=== PATIENT | female | born 1955 | race Caucasian/White ===

== ENCOUNTER 2023-06-26 18:39 | Inpatient (IN) ==
[2023-06-26] MEDS ORDERED: 0.9 % SODIUM CHLORIDE 1,000 ML IV ONE ×3 (18:54→21:42)
[2023-06-26] MEDS ORDERED: INSULIN REGULAR, HUMAN 1 UNIT/0.01 ML UNIT IV ONE ×2 (18:54→23:59)
[2023-06-26 19:31] LABS: Basophils # (Auto) 0.05 K/mcL (0.00-0.30); Basophils % (Auto) 0.3 % (0.0-2.0); Eosinophils # (Auto) 0.05 K/mcL (0.00-0.70); Eosinophils % (Auto) 0.3 % (0.0-7.0); Hematocrit 47.1 % (34.1-44.9); Hemoglobin 15.7 g/dL (11.2-15.7); Lymphocytes # (Auto) 0.78 K/mcL (1.50-4.80); Mean Cell Volume 86.6 fL (80.0-100.0); Mean Corpuscular HGB Conc 33.3 g/dL (31.0-36.0); Mean Platelet Volume 11.5 fL (8.8-12.5); Monocytes # (Auto) 0.76 K/mcL (0.10-0.90); Monocytes % (Auto) 4.9 % (1.0-12.0); Neutrophils % (Auto) 88.9 % (38.0-78.0); Platelet Count 274 K/mcL (140-440); RBC 5.44 M/mcL (3.59-5.38); WBC 15.5 K/mcL (4.5-11.0)
[2023-06-26 19:59] LABS: ALT/SGPT 6 U/L (<40); AST/SGOT 9 U/L (<32); Albumin 3.8 gm/dL (3.2-5.2); Albumin/Globulin Ratio 1.3 (1.0-2.3); Alkaline Phosphatase 84 U/L (39-117); Bilirubin,Total 0.5 mg/dL (0.1-1.0); Blood Urea Nitrogen 18 mg/dL (8-23); Calcium 9.2 mg/dL (8.6-10.4); Carbon Dioxide 17 mmol/L (22-30); Chloride 87 mmol/L (96-108); Glomerular Filtration Rate 39; Glucose 854 mg/dL (70-105)
[2023-06-26] MEDS ORDERED: AZITHROMYCIN 500 MG in DEXTROSE 5% IN WATER 250 ML IV ONE (20:21)
[2023-06-26] MEDS: INSULIN REGULAR, HUMAN 50 UNIT in 0.9 % SODIUM CHLORIDE 99.5 ML IV SCH (20:43)
[2023-06-26 21:53] LABS: Beta Hydroxybutyrate 1.73 mmol/L (<0.27)
[2023-06-26] MEDS ORDERED: DOCUSATE SODIUM 10 MG/ML ML PO PRN (22:24)
[2023-06-26] MEDS ORDERED: ONDANSETRON 4 MG/2 ML VIAL IV PRN (22:24)
[2023-06-26] MEDS ORDERED: BISACODYL 10 MG SUPP.RECT PR PRN (22:24)
[2023-06-26] MEDS ORDERED: IPRATROPIUM 2.5 ML AMPUL.NEB NEB PRN (22:29)
[2023-06-26] MEDS ORDERED: AZITHROMYCIN 500 MG in DEXTROSE 5% IN WATER 250 ML IV SCH (22:30)
[2023-06-26] MEDS ORDERED: LACTATED RINGERS 1,000 ML IV SCH (22:30)
[2023-06-26] MEDS ORDERED: HYDROcodone/APAP 5/325MG TABLET PO PRN (22:37)
[2023-06-26] MEDS ORDERED: LORazepam 0.5 MG TABLET PO PRN (22:37)
[2023-06-26] MEDS ORDERED: INSULIN REGULAR, HUMAN 50 UNIT in 0.9 % SODIUM CHLORIDE 99.5 ML IV SCH (22:45)
[2023-06-26] MEDS ORDERED: tiZANidine 4 MG TABLET PO PRN (22:55)
[2023-06-26] MEDS ORDERED: 0.9 % SODIUM CHLORIDE 1,000 ML IV SCH (23:00)
[2023-06-27] MEDS ORDERED: INSULIN REGULAR, HUMAN 1 UNIT/0.01 ML UNIT ONE ×2 (00:03→04:57)
[2023-06-27] MEDS ORDERED: cefTRIAXone 1 GM VIAL ONE (00:04)
[2023-06-27] MEDS: cefTRIAXone 1 GM VIAL IV SCH ×2 (00:07→09:12)
[2023-06-27] MEDS: 0.9 % SODIUM CHLORIDE 10 ML SYRINGE IV SCH ×4 (00:13→21:11)
[2023-06-27 00:52] LABS: ALT/SGPT < 5 U/L (<40); AST/SGOT 8 U/L (<32); Albumin/Globulin Ratio 1.1 (1.0-2.3); Alkaline Phosphatase 67 U/L (39-117); Bilirubin,Direct < 0.2 mg/dL (0-0.3); Bilirubin,Total 0.3 mg/dL (0.1-1.0); Globulin 2.7 gm/dL (2.2-3.7); Lactate Dehydrogenase 162 U/L (135-225); Phosphorous 0.8 mg/dL (2.5-4.5); Triglycerides 241 mg/dL (<150); Uric Acid 5.1 mg/dL (2.5-8.0)
[2023-06-27] MEDS ORDERED: POTASSIUM PHOSPHATE 66 MEQ/15 ML VIAL IV ONE (01:15)
[2023-06-27] MEDS ORDERED: POTASSIUM CHLORIDE 20 MEQ/10 ML VIAL IV ONE (01:16)
[2023-06-27] MEDS ORDERED: POTASSIUM CHLORIDE 80 MEQ in DEXTROSE 5% IN WATER 1,000 ML IV ONE (01:35)
[2023-06-27] MEDS: POTASSIUM CHLORIDE 40 MEQ in DEXTROSE 5% IN WATER 500 ML IV SCH ×2 (01:57→13:12)
[2023-06-27] MEDS ORDERED: WATER IV SCH (02:00)
[2023-06-27] MEDS ORDERED: DEXTROSE 5% IV SCH (02:00)
[2023-06-27] MEDS ORDERED: POTASSIUM PHOSPHATE IV SCH (02:00)
[2023-06-27] MEDS: DEXTROSE 5%-NS 1,000 ML IV SCH ×2 (02:00→14:19)
[2023-06-27] MEDS ORDERED: NEUTRA PHOS 1 PACKET PO ONE (02:36)
[2023-06-27] MEDS ORDERED: NEUTRA PHOS 1 PACKET ONE (03:15)
[2023-06-27] MEDS: INSULIN REGULAR, HUMAN 50 UNIT in 0.9 % SODIUM CHLORIDE 99.5 ML IV SCH (05:01)
[2023-06-27 06:03] LABS: Basophils # (Auto) 0.02 K/mcL (0.00-0.30); Basophils % (Auto) 0.2 % (0.0-2.0); Eosinophils % (Auto) 3.2 % (0.0-7.0); Hematocrit 36.1 % (34.1-44.9); Hemoglobin 12.1 g/dL (11.2-15.7); Lymphocytes # (Auto) 1.06 K/mcL (1.50-4.80); Lymphocytes % (Auto) 8.5 % (15.5-49.0); Mean Cell Volume 87.4 fL (80.0-100.0); Mean Corpuscular HGB Conc 33.5 g/dL (31.0-36.0); Mean Platelet Volume 10.7 fL (8.8-12.5); Monocytes # (Auto) 0.62 K/mcL (0.10-0.90); Neutrophils % (Auto) 82.5 % (38.0-78.0); Platelet Count 252 K/mcL (140-440); RBC 4.13 M/mcL (3.59-5.38); Red Cell Distribution Width 13.1 % (11.5-14.5); WBC 12.4 K/mcL (4.5-11.0)
[2023-06-27 06:55] LABS: ALT/SGPT < 5 U/L (<40); AST/SGOT 10 U/L (<32); Albumin 2.6 gm/dL (3.2-5.2); Albumin/Globulin Ratio 1.2 (1.0-2.3); Alkaline Phosphatase 51 U/L (39-117); Bilirubin,Direct < 0.2 mg/dL (0-0.3); Bilirubin,Total 0.2 mg/dL (0.1-1.0); Blood Urea Nitrogen 10 mg/dL (8-23); Calcium 7.9 mg/dL (8.6-10.4); Carbon Dioxide 17 mmol/L (22-30); Chloride 109 mmol/L (96-108); Globulin 2.1 gm/dL (2.2-3.7); Glomerular Filtration Rate 77; Glucose 188 mg/dL (70-105); Lactate Dehydrogenase 134 U/L (135-225); Phosphorous 0.6 mg/dL (2.5-4.5); Triglycerides 165 mg/dL (<150); Uric Acid 4.8 mg/dL (2.5-8.0)
[2023-06-27] MEDS ORDERED: METHOCARBAMOL 750 MG TABLET PO PRN (07:29)
[2023-06-27] MEDS ORDERED: DEXTROSE 50% 50 ML VIAL IV PRN (08:01)
[2023-06-27] MEDS ORDERED: DEXTROSE 31 GM ORAL.SUSP PO PRN (08:01)
[2023-06-27] MEDS ORDERED: INSULIN GLARGINE, HUMAN 1 UNIT/0.01 ML SQ SCH (09:00)
[2023-06-27] MEDS: POTASSIUM PHOSPHATE 40 MEQ in DEXTROSE 5% IN WATER 500 ML IV SCH ×2 (09:03→14:19)
[2023-06-27] MEDS: PHOSPHORUS 250 MG TABLET PO SCH ×4 (09:10→21:11)
[2023-06-27] MEDS: ENOXAPARIN 40 MG/0.4 ML SYRINGE SQ SCH (09:28)
[2023-06-27] MEDS: INSULIN LISPRO 1 UNIT/0.01 ML UNIT SQ SCH ×3 (11:16→21:10)
[2023-06-27 12:31] LABS: Blood Urea Nitrogen 10 mg/dL (8-23); Calcium 7.7 mg/dL (8.6-10.4); Carbon Dioxide 17 mmol/L (22-30); Chloride 107 mmol/L (96-108); Glomerular Filtration Rate 90; Glucose 180 mg/dL (70-105)
[2023-06-27] MEDS ORDERED: ALBUTEROL SULFATE 60 PUFF INHALER INH PRN (14:00)
[2023-06-27] MEDS ORDERED: AZITHROMYCIN 500 MG in DEXTROSE 5% IN WATER 250 ML IV SCH (15:00)
[2023-06-27] MEDS: POTASSIUM CHLORIDE 20 MEQ TABLET PO SCH ×2 (16:58→17:06)
[2023-06-27] MEDS: IPRATROPIUM/ALBUTEROL 3 ML AMPUL.NEB NEB PRN (17:19)
[2023-06-27] MEDS: GLIMEPIRIDE 2 MG TABLET PO SCH (21:09)
[2023-06-27] MEDS: ATORVASTATIN 20 MG TABLET PO SCH (21:10)
[2023-06-27] MEDS: FLUTICASONE PROPIONATE SPRAY.NAS NS SCH (21:10)
[2023-06-28] MEDS: ACETAMINOPHEN 325 MG TABLET PO PRN ×2 (03:32→15:00)
[2023-06-28] MEDS: 0.9 % SODIUM CHLORIDE 10 ML SYRINGE IV SCH ×3 (05:58→20:39)
[2023-06-28 06:45] LABS: Basophils # (Auto) 0.04 K/mcL (0.00-0.30); Basophils % (Auto) 0.4 % (0.0-2.0); Eosinophils # (Auto) 0.49 K/mcL (0.00-0.70); Eosinophils % (Auto) 4.5 % (0.0-7.0); Hematocrit 36.3 % (34.1-44.9); Hemoglobin 12.4 g/dL (11.2-15.7); Lymphocytes # (Auto) 1.25 K/mcL (1.50-4.80); Lymphocytes % (Auto) 11.5 % (15.5-49.0); Mean Cell Volume 87.3 fL (80.0-100.0); Mean Corpuscular HGB Conc 34.2 g/dL (31.0-36.0); Monocytes # (Auto) 0.72 K/mcL (0.10-0.90); Monocytes % (Auto) 6.6 % (1.0-12.0); Neutrophils % (Auto) 75.7 % (38.0-78.0); Platelet Count 279 K/mcL (140-440); RBC 4.16 M/mcL (3.59-5.38); Red Cell Distribution Width 13.1 % (11.5-14.5); WBC 10.8 K/mcL (4.5-11.0)
[2023-06-28 07:24] LABS: Phosphorous 2.5 mg/dL (2.5-4.5)
[2023-06-28] MEDS: INSULIN LISPRO 1 UNIT/0.01 ML UNIT SQ SCH ×4 (07:26→20:27)
[2023-06-28 07:48] LABS: ALT/SGPT 8 U/L (<40); AST/SGOT 17 U/L (<32); Albumin 2.5 gm/dL (3.2-5.2); Albumin/Globulin Ratio 1.3 (1.0-2.3); Alkaline Phosphatase 58 U/L (39-117); Bilirubin,Total 0.2 mg/dL (0.1-1.0); Blood Urea Nitrogen 9 mg/dL (8-23); Calcium 7.6 mg/dL (8.6-10.4); Carbon Dioxide 20 mmol/L (22-30); Chloride 105 mmol/L (96-108); Glomerular Filtration Rate 90; Glucose 206 mg/dL (70-105)
[2023-06-28] MEDS ORDERED: MAGNESIUM SULFATE 2 GM/50 ML BAG IV SCH (07:58)
[2023-06-28] MEDS: POTASSIUM CHLORIDE 20 MEQ TABLET PO SCH ×2 (08:16→16:57)
[2023-06-28] MEDS: PHOSPHORUS 250 MG TABLET PO SCH ×4 (08:20→21:02)
[2023-06-28] MEDS: sitaGLIPtin 100 MG TABLET PO SCH (08:24)
[2023-06-28] MEDS: GLIMEPIRIDE 2 MG TABLET PO SCH ×2 (08:25→21:02)
[2023-06-28] MEDS: INSULIN GLARGINE, HUMAN 1 UNIT/0.01 ML SQ SCH (08:27)
[2023-06-28] MEDS: FLUTICASONE PROPIONATE SPRAY.NAS NS SCH ×2 (08:27→20:38)
[2023-06-28] MEDS: ENOXAPARIN 40 MG/0.4 ML SYRINGE SQ SCH (08:27)
[2023-06-28] MEDS ORDERED: POTASSIUM CHLORIDE 40 MEQ in DEXTROSE 5% IN WATER 500 ML IV SCH (08:30)
[2023-06-28] MEDS: cefTRIAXone 1 GM VIAL IV SCH (08:36)
[2023-06-28] MEDS ORDERED: AZITHROMYCIN 250 MG TABLET PO SCH (09:00)
[2023-06-28] MEDS: IPRATROPIUM/ALBUTEROL 3 ML AMPUL.NEB NEB PRN ×2 (09:02→15:14)
[2023-06-28] MEDS: ATORVASTATIN 20 MG TABLET PO SCH (21:02)
[2023-06-29] MEDS: 0.9 % SODIUM CHLORIDE 10 ML SYRINGE IV SCH ×3 (04:28→21:23)
[2023-06-29 06:34] LABS: Basophils # (Auto) 0.04 K/mcL (0.00-0.30); Basophils % (Auto) 0.4 % (0.0-2.0); Eosinophils # (Auto) 0.45 K/mcL (0.00-0.70); Eosinophils % (Auto) 4.5 % (0.0-7.0); Hematocrit 40.4 % (34.1-44.9); Hemoglobin 13.4 g/dL (11.2-15.7); Lymphocytes # (Auto) 1.16 K/mcL (1.50-4.80); Lymphocytes % (Auto) 11.7 % (15.5-49.0); Mean Cell Volume 88.4 fL (80.0-100.0); Mean Corpuscular HGB Conc 33.2 g/dL (31.0-36.0); Mean Platelet Volume 10.3 fL (8.8-12.5); Monocytes # (Auto) 0.81 K/mcL (0.10-0.90); Monocytes % (Auto) 8.1 % (1.0-12.0); Neutrophils % (Auto) 72.9 % (38.0-78.0); Platelet Count 343 K/mcL (140-440); RBC 4.57 M/mcL (3.59-5.38); Red Cell Distribution Width 13.3 % (11.5-14.5); WBC 9.9 K/mcL (4.5-11.0)
[2023-06-29 06:46] LABS: Phosphorous 2.8 mg/dL (2.5-4.5)
[2023-06-29 07:15] LABS: ALT/SGPT < 5 U/L (<40); AST/SGOT 13 U/L (<32); Albumin 2.6 gm/dL (3.2-5.2); Albumin/Globulin Ratio 1.1 (1.0-2.3); Alkaline Phosphatase 66 U/L (39-117); Bilirubin,Total 0.2 mg/dL (0.1-1.0); Blood Urea Nitrogen 6 mg/dL (8-23); Carbon Dioxide 21 mmol/L (22-30); Chloride 108 mmol/L (96-108); Globulin 2.4 gm/dL (2.2-3.7); Glomerular Filtration Rate 95; Glucose 113 mg/dL (70-105)
[2023-06-29] MEDS: INSULIN LISPRO 1 UNIT/0.01 ML UNIT SQ SCH ×4 (07:47→21:22)
[2023-06-29] MEDS: POTASSIUM CHLORIDE 20 MEQ TABLET PO SCH ×2 (07:53→17:16)
[2023-06-29] MEDS ORDERED: POTASSIUM CHLORIDE 40 MEQ in DEXTROSE 5% IN WATER 500 ML IV SCH (08:30)
[2023-06-29] MEDS ORDERED: PNEUMOCOCCAL 23-VAL P-SAC VAC 0.5 ML SYRINGE IM ONE (09:00)
[2023-06-29] MEDS ORDERED: FLUZONE QUAD QS2023-24/PF 60 MCG/0.5 ML SYRINGE IM ONE (09:00)
[2023-06-29] MEDS: INSULIN GLARGINE, HUMAN 1 UNIT/0.01 ML SQ SCH (09:06)
[2023-06-29] MEDS: PHOSPHORUS 250 MG TABLET PO SCH ×4 (09:06→21:21)
[2023-06-29] MEDS: sitaGLIPtin 100 MG TABLET PO SCH (09:06)
[2023-06-29] MEDS: MAGNESIUM OXIDE 400 MG TABLET PO SCH (09:06)
[2023-06-29] MEDS: ENOXAPARIN 40 MG/0.4 ML SYRINGE SQ SCH (09:07)
[2023-06-29] MEDS: GLIMEPIRIDE 2 MG TABLET PO SCH ×2 (09:07→21:21)
[2023-06-29] MEDS: cefTRIAXone 1 GM VIAL IV SCH (09:29)
[2023-06-29] MEDS: FLUTICASONE PROPIONATE SPRAY.NAS NS SCH ×2 (12:16→21:22)
[2023-06-29] MEDS: ATORVASTATIN 20 MG TABLET PO SCH (21:21)
[2023-06-30] MEDS: 0.9 % SODIUM CHLORIDE 10 ML SYRINGE IV SCH (05:35)
[2023-06-30] MEDS: INSULIN LISPRO 1 UNIT/0.01 ML UNIT SQ SCH ×2 (07:39→11:58)
[2023-06-30 07:45] LABS: Basophils # (Auto) 0.03 K/mcL (0.00-0.30); Basophils % (Auto) 0.4 % (0.0-2.0); Eosinophils # (Auto) 0.34 K/mcL (0.00-0.70); Eosinophils % (Auto) 4.2 % (0.0-7.0); Hematocrit 41.7 % (34.1-44.9); Hemoglobin 13.8 g/dL (11.2-15.7); Lymphocytes # (Auto) 1.38 K/mcL (1.50-4.80); Lymphocytes % (Auto) 16.9 % (15.5-49.0); Mean Cell Volume 88.5 fL (80.0-100.0); Mean Corpuscular HGB Conc 33.1 g/dL (31.0-36.0); Mean Platelet Volume 9.9 fL (8.8-12.5); Monocytes # (Auto) 0.92 K/mcL (0.10-0.90); Monocytes % (Auto) 11.2 % (1.0-12.0); Neutrophils % (Auto) 63.3 % (38.0-78.0); Platelet Count 392 K/mcL (140-440); RBC 4.71 M/mcL (3.59-5.38); Red Cell Distribution Width 13.1 % (11.5-14.5); WBC 8.2 K/mcL (4.5-11.0)
[2023-06-30 07:51] LABS: Phosphorous 2.9 mg/dL (2.5-4.5)
[2023-06-30 07:54] LABS: ALT/SGPT 7 U/L (<40); AST/SGOT 20 U/L (<32); Albumin 2.8 gm/dL (3.2-5.2); Albumin/Globulin Ratio 1.1 (1.0-2.3); Alkaline Phosphatase 70 U/L (39-117); Bilirubin,Total 0.2 mg/dL (0.1-1.0); Blood Urea Nitrogen 4 mg/dL (8-23); Calcium 8.2 mg/dL (8.6-10.4); Carbon Dioxide 22 mmol/L (22-30); Chloride 107 mmol/L (96-108); Globulin 2.5 gm/dL (2.2-3.7); Glomerular Filtration Rate 95; Glucose 111 mg/dL (70-105)
[2023-06-30] MEDS ORDERED: INSULIN GLARGINE, HUMAN 1 UNIT/0.01 ML SQ SCH (09:00)
[2023-06-30] MEDS: POTASSIUM CHLORIDE 20 MEQ TABLET PO SCH ×2 (09:10→09:26)
[2023-06-30] MEDS: sitaGLIPtin 100 MG TABLET PO SCH (09:11)
[2023-06-30] MEDS: MAGNESIUM OXIDE 400 MG TABLET PO SCH ×2 (09:11→09:27)
[2023-06-30] MEDS: ENOXAPARIN 40 MG/0.4 ML SYRINGE SQ SCH (09:11)
[2023-06-30] MEDS: PHOSPHORUS 250 MG TABLET PO SCH ×3 (09:11→12:16)
[2023-06-30] MEDS: FLUTICASONE PROPIONATE SPRAY.NAS NS SCH ×2 (09:11→10:00)
[2023-06-30] MEDS: GLIMEPIRIDE 2 MG TABLET PO SCH (09:12)
[2023-06-30] MEDS: cefTRIAXone 1 GM VIAL IV SCH (09:13)
[2023-06-30] MEDS ORDERED: PNEUMOCOCCAL 23-VAL P-SAC VAC 0.5 ML SYRINGE IM ONE (10:00)
== END 2023-06-30 12:45 | disposition home or self-care (01) | DRG 637 ==
LOC: ED 18:39 → ICU 23:17 → MEDSUR 06-28 16:40
PROVIDERS: ADMIT Internal Medicine; ATTEND Internal Medicine

== ENCOUNTER 2024-04-27 18:24 | Inpatient (IN) ==
[2024-04-27] MEDS: morphine 4 MG/ML VIAL IV ONE (19:22)
[2024-04-27 19:23] LABS: Basophils # (Auto) 0.02 K/mcL (0.00-0.30); Basophils % (Auto) 0.3 % (0.0-2.0); Eosinophils # (Auto) 0.08 K/mcL (0.00-0.70); Eosinophils % (Auto) 1.1 % (0.0-7.0); Hemoglobin 14.2 g/dL (11.2-15.7); Lymphocytes # (Auto) 1.53 K/mcL (1.50-4.80); Lymphocytes % (Auto) 21.3 % (15.5-49.0); Mean Cell Volume 87.6 fL (80.0-100.0); Mean Platelet Volume 10.3 fL (8.8-12.5); Monocytes # (Auto) 0.51 K/mcL (0.10-0.90); Monocytes % (Auto) 7.1 % (1.0-12.0); Neutrophils % (Auto) 69.5 % (38.0-78.0); Platelet Count 282 K/mcL (140-440); RBC 4.91 M/mcL (3.59-5.38); Red Cell Distribution Width 13.1 % (11.5-14.5); WBC 7.2 K/mcL (4.5-11.0)
[2024-04-27 19:44] LABS: ALT/SGPT 6 U/L (<40); AST/SGOT 10 U/L (<32); Albumin 4.1 gm/dL (3.2-5.2); Albumin/Globulin Ratio 2.4 (1.0-2.3); Alkaline Phosphatase 81 U/L (39-117); Bilirubin,Total 0.3 mg/dL (0.1-1.0); Blood Urea Nitrogen 13 mg/dL (8-23); Calcium 8.6 mg/dL (8.6-10.4); Carbon Dioxide 19 mmol/L (22-30); Chloride 90 mmol/L (96-108); Globulin 1.7 gm/dL (2.2-3.7); Glomerular Filtration Rate 52; Glucose 707 mg/dL (70-105); Potassium 4.7 mmol/L (3.3-5.1); Sodium 125 mmol/L (133-145)
[2024-04-27] MEDS: 0.9 % SODIUM CHLORIDE 1,000 ML IV ONE (19:56)
[2024-04-27 20:34] LABS: Alcohol, Blood < 10.1 mg/dL; Alcohol,Blood < 0.010 gm/dL (<0.010)
[2024-04-27 20:34] LABS: Phosphorous 2.9 mg/dL (2.5-4.5)
[2024-04-27] MEDS ORDERED: NALOXONE HCL 0.4 MG/ML VIAL IV PRN (21:43)
[2024-04-27] MEDS ORDERED: ACETAMINOPHEN 325 MG TABLET PO PRN (21:43)
[2024-04-27] MEDS ORDERED: PROMETHAZINE 25 MG/ML VIAL IM PRN (21:43)
[2024-04-27] MEDS ORDERED: ONDANSETRON 4 MG/2 ML VIAL IV PRN (21:43)
[2024-04-27] MEDS ORDERED: IPRATROPIUM/ALBUTEROL 3 ML AMPUL.NEB NEB PRN (21:43)
[2024-04-27] MEDS: POTASSIUM CHLORIDE 20 MEQ in 0.45 % SODIUM CHLORIDE 1,000 ML IV SCH (22:13)
[2024-04-27] MEDS: INSULIN REGULAR, HUMAN 50 UNIT in 0.9 % SODIUM CHLORIDE 100 ML IV SCH (22:14)
[2024-04-27] MEDS: 0.9 % SODIUM CHLORIDE 10 ML SYRINGE IV SCH (22:19)
[2024-04-27 22:33] LABS: Appearance,Urine CLEAR (Clear); Bilirubin,Urine Negative (Negative); Color,Urine STRAW; Glucose,Urine (UA) >=500 mg/dL (Negative); Ketones,Urine 20 mg/dL (Negative); Leukocyte Esterase,Urine Negative /uL (Negative); Nitrate,Urine Negative (Negative); Protein,Urine Negative (Negative); Specific Gravity,Urine 1.024 (1.000-1.035); Urine RBC 2 /hpf (0-3); Urine Squamous Epithelial Cell 1 /hpf (0-4); Urine WBC 2 /hpf (0-4); Urobilinogen,Urine Negative
[2024-04-27 22:42] LABS: Hemoglobin A1C 17.7 % Hgb (4.0-6.0)
[2024-04-27] MEDS: INSULIN REGULAR, HUMAN 1 UNIT/0.01 ML UNIT IV ONE (23:12)
[2024-04-27 23:31] LABS: Amphetamine Screen,Urine None detected; Barbiturate Screen,Urine None detected; Benzodiazepines Screen,Urine None detected; Cannabinoid Screen,Urine None detected; Cocaine Screen,Urine None detected; Fentanyl, Urine Screen None Detected; Opiate Screen,Urine Suspect Positive; Oxycodone, Urine Screen None detected; Phencyclidine Screen,Urine None detected
[2024-04-27] MEDS: INSULIN REGULAR, HUMAN 1 UNIT/0.01 ML UNIT ONE (23:48)
[2024-04-28] MEDS: INSULIN REGULAR, HUMAN 1 UNIT/0.01 ML UNIT IV ONE (00:09)
[2024-04-28] MEDS: morphine 4 MG/ML VIAL IV PRN (00:43)
[2024-04-28] MEDS: POTASSIUM CHLORIDE 20 MEQ/10 ML VIAL IV ONE (00:49)
[2024-04-28 01:14] LABS: Blood Urea Nitrogen 11 mg/dL (8-23); Calcium 8.9 mg/dL (8.6-10.4); Carbon Dioxide 17 mmol/L (22-30); Chloride 101 mmol/L (96-108); Glomerular Filtration Rate 66; Glucose 277 mg/dL (70-105); Potassium 3.8 mmol/L (3.3-5.1); Sodium 133 mmol/L (133-145)
[2024-04-28] MEDS: DEXTROSE 5%-1/2NS W/20MEQ KCL 1,000 ML IV SCH (02:01)
[2024-04-28] MEDS: INSULIN REGULAR, HUMAN 1 UNIT/0.01 ML UNIT ONE ×2 (03:06)
[2024-04-28 07:47] LABS: Blood Urea Nitrogen 12 mg/dL (8-23); Calcium 8.5 mg/dL (8.6-10.4); Carbon Dioxide 19 mmol/L (22-30); Chloride 104 mmol/L (96-108); Glomerular Filtration Rate 76; Glucose 163 mg/dL (70-105); Phosphorous 1.6 mg/dL (2.5-4.5); Potassium 3.7 mmol/L (3.3-5.1); Sodium 136 mmol/L (133-145)
[2024-04-28] MEDS ORDERED: IPRATROPIUM 2.5 ML AMPUL.NEB NEB PRN (08:14)
[2024-04-28] MEDS ORDERED: CYCLOBENZAPRINE 10 MG TABLET PO PRN (08:22)
[2024-04-28] MEDS ORDERED: ALBUTEROL SULFATE 60 PUFF INHALER INH PRN (08:22)
[2024-04-28] MEDS ORDERED: DEXTROSE 31 GM ORAL.SUSP PO PRN ×2 (09:00→17:00)
[2024-04-28] MEDS ORDERED: DEXTROSE 50% 50 ML VIAL IV PRN ×2 (09:00→17:00)
[2024-04-28] MEDS: FLUTICASONE PROPIONATE SPRAY.NAS NS SCH (09:06)
[2024-04-28] MEDS: FAMOTIDINE/PF 20 MG/2 ML VIAL IV SCH (09:07)
[2024-04-28] MEDS: sitaGLIPtin 100 MG TABLET PO SCH (09:29)
[2024-04-28] MEDS ORDERED: INSULIN GLARGINE, HUMAN 1 UNIT/0.01 ML SQ SCH (09:39)
[2024-04-28] MEDS: INSULIN GLARGINE, HUMAN 1 UNIT/0.01 ML SQ SCH (09:59)
[2024-04-28] MEDS: INSULIN LISPRO 1 UNIT/0.01 ML UNIT SQ SCH ×2 (12:14→17:04)
[2024-04-28] MEDS: GLIMEPIRIDE 2 MG TABLET PO SCH (16:44)
[2024-04-28] MEDS: ATORVASTATIN 20 MG TABLET PO SCH (21:11)
[2024-04-28] MEDS: traMADol 50 MG TABLET PO PRN (21:11)
[2024-04-28] MEDS: NEUTRA PHOS 1 PACKET PO SCH (21:12)
[2024-04-29 06:44] LABS: Phosphorous 3.2 mg/dL (2.5-4.5)
[2024-04-29 06:45] LABS: ALT/SGPT 6 U/L (<40); AST/SGOT 13 U/L (<32); Albumin 3.1 gm/dL (3.2-5.2); Albumin/Globulin Ratio 2.2 (1.0-2.3); Alkaline Phosphatase 52 U/L (39-117); Bilirubin,Total 0.2 mg/dL (0.1-1.0); Blood Urea Nitrogen 13 mg/dL (8-23); Calcium 8.5 mg/dL (8.6-10.4); Carbon Dioxide 18 mmol/L (22-30); Chloride 105 mmol/L (96-108); Globulin 1.4 gm/dL (2.2-3.7); Glomerular Filtration Rate 76; Glucose 165 mg/dL (70-105); Potassium 3.9 mmol/L (3.3-5.1); Sodium 135 mmol/L (133-145)
[2024-04-29] MEDS: CALCIUM W/VIT D3 500 MG TABLET PO SCH (08:45)
[2024-04-29] MEDS ORDERED: INSULIN GLARGINE, HUMAN 1 UNIT/0.01 ML SQ SCH (09:00)
[2024-04-30] MEDS ORDERED: FLU VACC TS2024-25(65YR UP)/PF 180 MCG/0.5 ML SYRINGE IM ONE (09:00)
[2024-05-04 02:11] LABS: Opiate Screen Positive ng/mL (Cutoff=300)
== END 2024-04-29 16:30 | disposition home or self-care (01) | DRG 639 ==
LOC: ED 18:24 → ICU 21:39
PROVIDERS: ADMIT Internal Medicine; ATTEND Internal Medicine

== ENCOUNTER 2025-02-05 17:56 | Inpatient (IN) ==
[2025-02-05] MEDS: 0.9 % SODIUM CHLORIDE 1,000 ML IV ONE ×2 (18:19→20:10)
[2025-02-05 18:40] LABS: Basophils # (Auto) 0.04 K/mcL (0.00-0.30); Basophils % (Auto) 0.4 % (0.0-2.0); Eosinophils # (Auto) 0.11 K/mcL (0.00-0.70); Eosinophils % (Auto) 1.2 % (0.0-7.0); Hematocrit 41.0 % (34.1-44.9); Hemoglobin 13.6 g/dL (11.2-15.7); Lymphocytes # (Auto) 2.59 K/mcL (1.50-4.80); Lymphocytes % (Auto) 29.1 % (15.5-49.0); Mean Corpuscular HGB Conc 33.2 g/dL (31.0-36.0); Monocytes # (Auto) 0.54 K/mcL (0.10-0.90); Monocytes % (Auto) 6.1 % (1.0-12.0); Neutrophils % (Auto) 62.4 % (38.0-78.0); Platelet Count 331 K/mcL (140-440); RBC 4.64 M/mcL (3.59-5.38); WBC 8.9 K/mcL (4.5-11.0)
[2025-02-05 19:13] LABS: ALT/SGPT 8 U/L (<40); AST/SGOT 7 U/L (<32); Albumin 3.7 gm/dL (3.2-5.2); Albumin/Globulin Ratio 1.9 (1.0-2.3); Alkaline Phosphatase 78 U/L (39-117); Anion Gap 14.0 (8.0-16.0); Bilirubin,Total 0.4 mg/dL (0.1-1.0); Blood Urea Nitrogen 11 mg/dL (8-23); Calcium 8.9 mg/dL (8.6-10.4); Carbon Dioxide 21 mmol/L (22-30); Chloride 86 mmol/L (96-108); Globulin 1.9 gm/dL (2.2-3.7); Glucose 970 mg/dL (70-105); Potassium 4.6 mmol/L (3.3-5.1); Sodium 121 mmol/L (133-145)
[2025-02-05 19:30] LABS: Beta Hydroxybutyrate 0.48 mmol/L (<0.27)
[2025-02-05 19:50] LABS: POC Blood Urea Nitrogen 13 (6-20); POC CO2 20.0 (22-30); POC Calcium, Ionized 1.00 (1.16-1.32); POC Glucose, Random > 700 (70-105)
[2025-02-05] MEDS: INSULIN REGULAR, HUMAN 1 UNIT/0.01 ML UNIT IV ONE (20:05)
[2025-02-05 20:06] LABS: Bilirubin,Urine Negative (Negative); Color,Urine Yellow; Glucose,Urine (UA) >=1000 mg/dL (Negative); Ketones,Urine Negative (Negative); Leukocyte Esterase,Urine Negative /uL (Negative); PH,Urine 5.5 (5.0-9.0); Protein,Urine Negative (Negative); Specific Gravity,Urine <= 1.005 (1.000-1.035); Urine Budding Yeast Few /hpf; Urobilinogen,Urine Normal
[2025-02-05] MEDS: INSULIN REGULAR, HUMAN 50 UNIT in 0.9 % SODIUM CHLORIDE 99.5 ML IV SCH (20:06)
[2025-02-05] MEDS: DOXYCYCLINE HYCLATE 100 MG TABLET.ORL PO ONE (20:24)
[2025-02-05 21:58] LABS: POC Blood Urea Nitrogen 8.0 (6-20); POC CO2 20.0 (22-30); POC Calcium, Ionized 1.15 (1.16-1.32); POC Glucose, Random 629.0 (70-105)
[2025-02-05] MEDS ORDERED: ONDANSETRON 4 MG/2 ML VIAL IV PRN (23:35)
[2025-02-05] MEDS ORDERED: SENNOSIDES 1 TABLET PO PRN (23:35)
[2025-02-05] MEDS ORDERED: IPRATROPIUM/ALBUTEROL 3 ML AMPUL.NEB NEB PRN (23:35)
[2025-02-05] MEDS ORDERED: guaiFENesin/DEXTROMETHORPHAN 5ML UD CUP PO PRN (23:35)
[2025-02-05] MEDS ORDERED: LORazepam 2 MG/ML VIAL IV PRN (23:35)
[2025-02-06] MEDS: NACL 0.9% W/KCL 20MEQ 1,000 ML IV SCH (00:17)
[2025-02-06] MEDS: DEXTROSE 5%-1/2NS W/20MEQ KCL 1,000 ML IV SCH (00:18)
[2025-02-06] MEDS: LEVOFLOXACIN 500 MG/100 ML BAG IV SCH (00:18)
[2025-02-06] MEDS: ACETAMINOPHEN 325 MG TABLET PO PRN (00:27)
[2025-02-06 01:00] LABS: Anion Gap 13.0 (8.0-16.0); Blood Urea Nitrogen 9 mg/dL (8-23); Calcium 8.8 mg/dL (8.6-10.4); Carbon Dioxide 21 mmol/L (22-30); Chloride 96 mmol/L (96-108); Glucose 365 mg/dL (70-105); Potassium 3.1 mmol/L (3.3-5.1); Sodium 130 mmol/L (133-145)
[2025-02-06 01:15] LABS: Estimated Average Glucose(eAG) 484 mg/dL; Hemoglobin A1C 18.5 % Hgb (4.0-6.0)
[2025-02-06] MEDS: ACETAMINOPHEN 325 MG TABLET PO ONE (01:57)
[2025-02-06] MEDS: INSULIN REGULAR, HUMAN 1 UNIT/0.01 ML UNIT ONE (03:34)
[2025-02-06] MEDS: INSULIN REGULAR, HUMAN 50 UNIT in 0.9 % SODIUM CHLORIDE 100 ML IV SCH (04:08)
[2025-02-06] MEDS: 0.9 % SODIUM CHLORIDE 10 ML SYRINGE IV SCH (06:00)
[2025-02-06 06:13] LABS: Basophils # (Auto) 0.03 K/mcL (0.00-0.30); Basophils % (Auto) 0.4 % (0.0-2.0); Eosinophils # (Auto) 0.16 K/mcL (0.00-0.70); Eosinophils % (Auto) 2.2 % (0.0-7.0); Hematocrit 38.2 % (34.1-44.9); Hemoglobin 12.1 g/dL (11.2-15.7); Lymphocytes # (Auto) 2.95 K/mcL (1.50-4.80); Lymphocytes % (Auto) 40.9 % (15.5-49.0); Mean Corpuscular HGB Conc 31.7 g/dL (31.0-36.0); Monocytes # (Auto) 0.50 K/mcL (0.10-0.90); Monocytes % (Auto) 6.9 % (1.0-12.0); Neutrophils % (Auto) 48.5 % (38.0-78.0); Platelet Count 281 K/mcL (140-440); RBC 4.15 M/mcL (3.59-5.38); WBC 7.2 K/mcL (4.5-11.0)
[2025-02-06 06:31] LABS: Phosphorous 2.2 mg/dL (2.5-4.5)
[2025-02-06 06:54] LABS: Anion Gap 10.0 (8.0-16.0); Blood Urea Nitrogen 8 mg/dL (8-23); Calcium 8.3 mg/dL (8.6-10.4); Carbon Dioxide 20 mmol/L (22-30); Chloride 103 mmol/L (96-108); Glucose 247 mg/dL (70-105); Potassium 3.6 mmol/L (3.3-5.1); Sodium 133 mmol/L (133-145)
[2025-02-06] MEDS ORDERED: DEXTROSE 50% 50 ML VIAL IV PRN (09:11)
[2025-02-06] MEDS ORDERED: DEXTROSE 31 GM ORAL.SUSP PO PRN (09:11)
[2025-02-06] MEDS: DOCUSATE SODIUM 100 MG CAPSULE PO SCH (09:33)
[2025-02-06] MEDS: INSULIN GLARGINE, HUMAN 1 UNIT/0.01 ML SQ SCH (09:33)
[2025-02-06] MEDS: ENOXAPARIN 40 MG/0.4 ML SYRINGE SQ SCH (09:33)
[2025-02-06] MEDS: INSULIN LISPRO 1 UNIT/0.01 ML UNIT SQ SCH (11:30)
[2025-02-06] MEDS: LEVOFLOXACIN 250 MG TABLET PO SCH (14:08)
[2025-02-07 06:02] LABS: Basophils # (Auto) 0.03 K/mcL (0.00-0.30); Basophils % (Auto) 0.4 % (0.0-2.0); Eosinophils # (Auto) 0.25 K/mcL (0.00-0.70); Eosinophils % (Auto) 3.3 % (0.0-7.0); Hematocrit 41.5 % (34.1-44.9); Hemoglobin 13.2 g/dL (11.2-15.7); Lymphocytes # (Auto) 3.71 K/mcL (1.50-4.80); Lymphocytes % (Auto) 48.4 % (15.5-49.0); Mean Corpuscular HGB Conc 31.8 g/dL (31.0-36.0); Monocytes # (Auto) 0.62 K/mcL (0.10-0.90); Monocytes % (Auto) 8.1 % (1.0-12.0); Neutrophils % (Auto) 38.2 % (38.0-78.0); Platelet Count 308 K/mcL (140-440); RBC 4.51 M/mcL (3.59-5.38); WBC 7.7 K/mcL (4.5-11.0)
[2025-02-07 06:39] LABS: Phosphorous 3.1 mg/dL (2.5-4.5)
[2025-02-07 06:41] LABS: Anion Gap 12.0 (8.0-16.0); Blood Urea Nitrogen 12 mg/dL (8-23); Calcium 8.6 mg/dL (8.6-10.4); Carbon Dioxide 19 mmol/L (22-30); Chloride 103 mmol/L (96-108); Glucose 289 mg/dL (70-105); Potassium 4.2 mmol/L (3.3-5.1); Sodium 134 mmol/L (133-145)
[2025-02-07] MEDS ORDERED: IPRATROPIUM/ALBUTEROL 3 ML AMPUL.NEB NEB PRN (08:44)
[2025-02-07] MEDS ORDERED: ALBUTEROL SULFATE 60 PUFF INHALER INH PRN (08:44)
[2025-02-07] MEDS ORDERED: DEXTROSE 50% 50 ML VIAL IV PRN (09:20)
[2025-02-07] MEDS ORDERED: DEXTROSE 31 GM ORAL.SUSP PO PRN (09:20)
[2025-02-07] MEDS: LEVOFLOXACIN 250 MG TABLET PO SCH (09:41)
[2025-02-07] MEDS: ACETAMINOPHEN 500 MG TABLET PO PRN (09:41)
[2025-02-07] MEDS: INSULIN GLARGINE, HUMAN 1 UNIT/0.01 ML SQ SCH (09:42)
[2025-02-07] MEDS: FLUTICASONE PROPIONATE SPRAY.NAS NS SCH (09:53)
[2025-02-07] MEDS: INSULIN LISPRO 1 UNIT/0.01 ML UNIT SQ SCH (11:54)
[2025-02-07 19:07] VITALS: TEMP 98; O2SAT 98
[2025-02-07] MEDS ORDERED: ATORVASTATIN 20 MG TABLET PO SCH (21:00)
== END 2025-02-07 20:10 | disposition left against medical advice (07) | DRG 637 ==
LOC: ED 17:56 → ICU 23:31 → MEDSUR 02-07 12:03
PROVIDERS: ADMIT Internal Medicine; ATTEND Internal Medicine